=== PATIENT | male | born 1950 | race Caucasian/White ===

== ENCOUNTER 2017-10-29 15:50 | Emergency (ER) | payer OTHER ==
[2017-10-29 16:10] VITALS: RESP 16; TEMP 97.9; O2SAT 95
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
[2017-10-29 18:39] VITALS: BP 150/87; PULSE 83
== END 2017-10-29 18:31 | disposition home or self-care (01) ==
LOC: CED 15:50
DX: S52.002A Unspecified fracture of upper end of left ulna, initial encounter for closed fracture (principal); Z87.891 Personal history of nicotine dependence; V18.9XXA Unspecified pedal cyclist injured in noncollision transport accident in traffic accident, initial encounter
CPT/HCPCS: 73080; 99283; A4565

== ENCOUNTER 2017-11-06 08:56 | Day surgery (SDC) | payer OTHER ==
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
[2017-11-06] MEDS ORDERED: ceFAZolin 2 GM/SWFI 2 GM/20 ML SYR IVP ONE (09:05)
[2017-11-06] MEDS ORDERED: LR 1,000 ML IV ONE (09:06)
[2017-11-06] MEDS ORDERED: MIDAZOLAM 2 MG/2 ML VIAL IVP ONE (09:15)
--- NOTE | 2017-11-06 09:15 | PDANEPAE ---
ANE History of Present Illness Christ FUNG ANE Past Medical History - Cardiovascular History Hx Hypertension: No Hx Arrhythmias: No Hx Chest Pain: No Hx Coronary Artery / Peripheral Vascular Disease: No Hx CHF / Valvular Disease: No Hx Palpitations: No - Pulmonary History Hx COPD: No Hx Asthma/Reactive Airway Disease: No Hx Recent Upper Respiratory Infection: No Hx Oxygen in Use at Home: No Hx Sleep Apnea: No Sleep Apnea Screening Result - Last Documented: Negative - Neurologic History Hx Cerebrovascular Accident: No Hx Seizures: No Hx Dementia: No - Endocrine History Hx Diabetes: No - Renal History Hx Renal Disorders: Yes Renal History Comment: urgency- seems to be subsiding recently - Liver History Hx Hepatic Disorders: No - Neurological & Psychiatric Hx Hx Neurological and Psychiatric Disorders: No - Cancer History Hx Cancer: No - Congenital Disorder History Hx Congenital Disorders: No - GI History Hx Gastrointestinal Disorders: No - Other Health History Other Health History: wears glasses - Chronic Pain History Chronic Pain: No - Surgical History Prior Surgeries: 40 yrs ago- cystic hygroma removed from under left pectoral muscle. hernia repair. tumor removed from spine 2012 ANE Review of Systems Review of systems is: negative Review of Systems: - Exercise capacity METS (RN): 5 METS ANE Patient History - Allergies Allergies/Adverse Reactions: No Known Allergies Allergy (Verified 11/03/17 12:36) - Home Medications Home medications: home medication list seen and reviewed Home Medications: Herbals/Supplements -Info Only 11/03/17 [Last Taken 11/03/17] - NPO status NPO Since - Liquids (Date): 11/06/17 NPO Since - Liquids (Time): 07:00 - Anes Hx Anes Hx: no prior problems - Smoking Hx Smoking Status: Former smoker - Family Anes Hx Family Anes Hx: none Family Hx Anesthesia Complications: none ANE Labs/Vital Signs - Vital Signs Height: 187.96 cm Weight: 81.647 kg ANE Physical Exam - Airway Neck exam: FROM Mallampati Score: Class 1 Mouth exam: normal dental/mouth exam - Pulmonary Pulmonary: no respiratory distress - Cardiovascular Cardiovascular: regular rate and rhythym - ASA Status ASA Status: I ANE Anesthesia Plan Anesthesia Plan: GA w LMA
[2017-11-06] MEDS ORDERED: BACITRACIN 50,000 UNITS/10 ML SYR IRR ONE (09:18)
[2017-11-06] MEDS ORDERED: POLYMYXIN B SULFATE 500,000 UNIT/10 ML SYR IRR ONE (09:18)
[2017-11-06] MEDS ORDERED: BUPIVACAINE 0.5% 10 ML SDV ONE (09:19)
--- NOTE | 2017-11-06 09:29 | PDHPUP ---
History & Physical Update H&P update statement: This history and physical update is based on an assessment of the patient which was completed after admission or registration (within 24 hours), but prior to the surgery/procedure. H&P update: H&P reviewed & patient examined, no change in patient's condition since H&P completed
[2017-11-06] MEDS ORDERED: ROCURONIUM 50 MG/5 ML VIAL ONE (09:55)
[2017-11-06] MEDS ORDERED: PROPOFOL 200 MG/20 ML VIAL ONE (09:55)
[2017-11-06] MEDS ORDERED: LIDOCAINE 2% 100 MG/5 ML SYR ONE (09:55)
[2017-11-06] MEDS ORDERED: fentaNYL 250 MCG/5 ML INJ ONE (09:55)
[2017-11-06] MEDS ORDERED: DEXAMETHASONE 4 MG/ML VIAL ONE (09:55)
[2017-11-06] MEDS ORDERED: ONDANSETRON 4 MG/2 ML VIAL ONE (09:55)
[2017-11-06] MEDS ORDERED: DEXAMETHASONE 4 MG/ML VIAL IVP PRN (10:42)
[2017-11-06] MEDS ORDERED: ONDANSETRON 4 MG/2 ML VIAL IVP PRN (10:42)
[2017-11-06] MEDS ORDERED: NALOXONE HCL 0.4 MG/ML INJ IVP PRN (10:42)
[2017-11-06] MEDS ORDERED: PROMETHAZINE HCL 25 MG/ML INJ IVP PRN (10:42)
[2017-11-06] MEDS ORDERED: HYDROmorphONE/DILAUDID 1 MG/ML INJ IVP PRN (10:42)
[2017-11-06] MEDS ORDERED: MEPERIDINE 25 MG/ML SYR IVP PRN (10:42)
[2017-11-06] MEDS ORDERED: OXYCODONE/APAP 5/325 TAB PO PRN (10:42)
[2017-11-06] MEDS ORDERED: ACETAMINOPHEN 500 MG TAB PO PRN (10:42)
--- NOTE | 2017-11-06 10:44 | POSTANESTH ---
Post Anesthetic Evaluation Cardiovascular Status: Normal, Stable, Similar to Pre-Op Cond Respiratory Status: Normal, Stable, Similar to Pre-op Cond. Level of Consciousness/Mental Status: Can Participate in Eval, Moderately Sleepy Pain Control: Adequate, Prn Tx Ordered Nausea/Vomiting Control: Adequate, Prn Tx Ordered Complications Possibly Related to Anesthesia: None Noted
--- NOTE | 2017-11-06 11:19 | POSTOPPROG ---
Post Op Note Date of Operation: 11/06/17 Surgeon: Fei Gross Chemistry Professor: Bandar Chau Anesthesiologist: Prema Anesthesia: GET(General Endotracheal) Pre-op Diagnosis: Lt olecranon fx Post-op Diagnosis: same Procedure: ORIF lt olecranon Inf/Abcess present in the surg proc area at time of surgery?: No EBL: Minimal Complications: none
[2017-11-06] MEDS ORDERED: fentaNYL 100 MCG/2 ML INJ ONE (11:27)
[2017-11-06] MEDS ORDERED: MEPERIDINE 25 MG/ML SYR ONE (11:27)
[2017-11-06] MEDS: fentaNYL 100 MCG/2 ML INJ IVP PRN ×2 (11:29→11:41)
[2017-11-06] MEDS ORDERED: ACETAMINOPHEN 500 MG TAB ONE (11:58)
[2017-11-06 12:29] VITALS: PULSE 69; RESP 18; TEMP 98.1
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
[2017-11-06 14:29] VITALS: BP 104/71; O2SAT 94
== END 2017-11-06 13:45 | disposition home or self-care (01) ==
LOC: FSGY 08:56
PROVIDERS: ATTEND Orthopaedic Surgery
PROC: 0PSL04Z Reposition Left Ulna with Internal Fixation Device, Open Approach (ICD-10-PCS; principal; 2017-11-06 10:15)
DX: S52.022A Displaced fracture of olecranon process without intraarticular extension of left ulna, initial encounter for closed fracture (principal); Z87.891 Personal history of nicotine dependence; X50.9XXA Other and unspecified overexertion or strenuous movements or postures, initial encounter
CPT/HCPCS: C1713; J0690; J1100; J2001; J2175; J2250; J2405; J2704; J3010

== ENCOUNTER 2018-06-26 09:09 | Day surgery (SDC) | payer OTHER ==
[2018-06-26] MEDS ORDERED: ceFAZolin 2 GM/DEXTROSE 100 ML IV ONE (09:16)
[2018-06-26] MEDS ORDERED: LR 1,000 ML IV ONE (09:17)
[2018-06-26] MEDS ORDERED: BUPIVACAINE/EPI 0.5% 30 ML SDV ONE (09:56)
[2018-06-26] MEDS ORDERED: MIDAZOLAM 2 MG/2 ML VIAL ONE (10:29)
[2018-06-26] MEDS ORDERED: PROPOFOL/EMULSION 500 MG/50 ML BOTTLE IV ONE (10:29)
[2018-06-26] MEDS ORDERED: fentaNYL 100 MCG/2 ML INJ ONE (10:29)
--- NOTE | 2018-06-26 10:38 | PDANEPAE ---
ANE Past Medical History - Cardiovascular History Hx Hypertension: No Hx Arrhythmias: No Hx Chest Pain: No Hx Coronary Artery / Peripheral Vascular Disease: No Hx CHF / Valvular Disease: No Hx Palpitations: No - Pulmonary History Hx COPD: No Hx Asthma/Reactive Airway Disease: No Hx Recent Upper Respiratory Infection: No Hx Oxygen in Use at Home: No Hx Sleep Apnea: No Sleep Apnea Screening Result - Last Documented: Negative - Neurologic History Hx Cerebrovascular Accident: No Hx Seizures: No Hx Dementia: No - Endocrine History Hx Diabetes: No - Renal History Hx Renal Disorders: Yes Renal History Comment: urgency, frequency - Liver History Hx Hepatic Disorders: No - Neurological & Psychiatric Hx Hx Neurological and Psychiatric Disorders: No - Cancer History Hx Cancer: No - Congenital Disorder History Hx Congenital Disorders: No - GI History Hx Gastrointestinal Disorders: No - Other Health History Other Health History: wears glasses. tinnitus, left ear. inguinal hernia. lichen planus, left toes - Chronic Pain History Chronic Pain: No - Surgical History Prior Surgeries: Hardware removal in office 05/2018. Left elbow ORIF, 10/2017. 40 yrs ago- cystic hygroma removed from under left pectoral muscle. hernia repair. tumor removed from spine 2011 ANE Review of Systems Review of Systems: - Exercise capacity METS (RN): 5 METS ANE Patient History - Allergies Allergies/Adverse Reactions: No Known Allergies Allergy (Verified 06/20/18 15:40) - Home Medications Home Medications: NK [No Known Home Meds] 06/20/18 [Last Taken Unknown] - NPO status NPO Since - Liquids (Date): 06/26/18 NPO Since - Liquids (Time): 07:30 NPO Since - Solids (Date): 06/25/18 NPO Since - Solids (Time): 21:00 - Smoking Hx Smoking Status: Former smoker - Family Anes Hx Family Hx Anesthesia Complications: none ANE Labs/Vital Signs - Vital Signs Blood Pressure: 163/95 Heart Rate: 71 Respiratory Rate: 16 O2 Sat (%): 97 Height: 187.96 cm Weight: 81.647 kg ANE Physical Exam - Airway Neck exam: FROM Mallampati Score: Class 1 Mouth exam: normal dental/mouth exam - Pulmonary Pulmonary: no respiratory distress, no rales or rhonchi, clear to auscultation - Cardiovascular Cardiovascular: regular rate and rhythym, no murmur, rub, or gallop - ASA Status ASA Status: II ANE Anesthesia Plan Anesthesia Plan: general endotracheal anesthesia
[2018-06-26] MEDS ORDERED: ALBUTEROL 3 ML DEYVIAL IH PRN (11:07)
[2018-06-26] MEDS ORDERED: METOCLOPRAMIDE 10 MG/2 ML VIAL IVP PRN (11:07)
[2018-06-26] MEDS ORDERED: LR 500 ML IV PRN (11:07)
[2018-06-26] MEDS ORDERED: DEXAMETHASONE 4 MG/ML VIAL IVP PRN (11:07)
[2018-06-26] MEDS ORDERED: ACETAMINOPHEN 500 MG TAB PO PRN (11:07)
[2018-06-26] MEDS ORDERED: oxyCODONE IR 5 MG TAB PO PRN (11:07)
[2018-06-26] MEDS ORDERED: NALOXONE HCL 0.4 MG/ML INJ IVP PRN (11:07)
[2018-06-26] MEDS ORDERED: fentaNYL 100 MCG/2 ML INJ IVP PRN (11:07)
[2018-06-26] MEDS ORDERED: HYDROCODONE/APAP 5/325 TAB PO PRN (11:07)
[2018-06-26] MEDS ORDERED: ONDANSETRON 4 MG/2 ML VIAL IVP PRN (11:07)
[2018-06-26] MEDS ORDERED: MEPERIDINE 25 MG/0.5 ML AMP IVP PRN (11:07)
[2018-06-26] MEDS ORDERED: SUGAMMADEX SODIUM 200 MG/2 ML VIAL IVP ONE (11:15)
[2018-06-26] MEDS ORDERED: ROCURONIUM 50 MG/5 ML VIAL ONE ×2 (11:15→11:50)
[2018-06-26] MEDS ORDERED: METOCLOPRAMIDE 10 MG/2 ML VIAL ONE (11:15)
[2018-06-26] MEDS ORDERED: ONDANSETRON 4 MG/2 ML VIAL ONE (11:15)
[2018-06-26] MEDS ORDERED: ESMOLOL HCL 100 MG/10 ML VIAL IV ONE (11:15)
[2018-06-26] MEDS ORDERED: KETOROLAC 30 MG/1 ML SDV ONE (11:15)
[2018-06-26] MEDS ORDERED: DEXAMETHASONE 4 MG/ML VIAL ONE (11:15)
--- NOTE | 2018-06-26 12:00 | POSTOPPROG ---
Post Op Note Date of Operation: 06/26/18 Surgeon: Luis E Ward [employer] Specialist: PAMELA Felder Anesthesiologist: Alexx Anesthesia: GET(General Endotracheal) Pre-op Diagnosis: LIH Post-op Diagnosis: same Procedure: Robotic assisted LIH c mesh Findings: moderate sized indirect defect Inf/Abcess present in the surg proc area at time of surgery?: No EBL: Minimal
--- NOTE | 2018-06-26 12:24 | POSTANESTH ---
Post Anesthetic Evaluation Cardiovascular Status: Normal, Stable, Similar to Pre-Op Cond Respiratory Status: Normal, Stable, Similar to Pre-op Cond. Level of Consciousness/Mental Status: Moderately Sleepy Pain Control: Adequate, Prn Tx Ordered Nausea/Vomiting Control: Adequate, Prn Tx Ordered Complications Possibly Related to Anesthesia: None Noted
--- NOTE | 2018-06-26 13:11 | GOP ---
DATE OF OPERATION: 06/26/2018 SURGEON: Luis E Ward MD WATER AND GAS HELPER: Mihaela Lynne CFA. ANESTHESIA: General endotracheal. ANESTHESIOLOGIST: Sofia Coffey MD. PREOPERATIVE DIAGNOSIS: Left inguinal hernia. POSTOPERATIVE DIAGNOSIS: Left inguinal hernia. PROCEDURE PERFORMED: Robotic-assisted laparoscopic left inguinal hernia repair with mesh. FINDINGS: Moderate-sized indirect defect successfully reduced and repaired with Bard 3D Light large- size mesh. SPECIMENS: None. ESTIMATED BLOOD LOSS: 5 cc. DESCRIPTION OF PROCEDURE: The patient was greeted in the preoperative suite. Once again, risks, cedric efits and alternatives were discussed. Consent was signed. He was then brought back to the operativ e suite, placed on the OR table in supine position. After all anesthesia machines including SCDs wer e on and functioning, [employer] time-out was performed. After successful induction o f general anesthesia, the patient's abdomen was prepped and draped in typical sterile fashion. I com menced the procedure by making a left upper quadrant incision through which the Veress needle was pas sed. I achieved pneumoperitoneum to 15 mmHg, which was well tolerated by the patient. Through this I inserted an 8 mm trocar. I then inserted 2 additional 8 mm trocars, 1 just above the umbilicus, 1 in the right upper quadrant, both under direct visualization. Once successfully in the abdomen, the patient was placed in gentle Trendelenburg position, and the robot was docked. Using the robot I suc cessfully identified a left inguinal defect. I scored the peritoneum just above the anterior superio r iliac spine and carried this medially to the pubic tubercle. I then opened the preperitoneal flap, carried it down, identified the hernia sac and successfully skeletonized it off the cord structures. Once successfully skeletonized, I interrogated both the direct and femoral spaces and found no othe r significant findings. There was a small cord lipoma, which was removed as well. The mesh was then brought in to the operative field. It was attached to Geronimo's ligament with interrupted 2-0 Vicryl stitch as well as on either side of the inferior epigastric vessels. The peritoneal defect was then closed with a running V-Loc suture. I evacuated my pneumoperitoneum. I had no other significant fi ndings. The skin was closed with Monocryl over which Dermabond was placed. The patient was then ext ubated in the operative suite and taken to the PACU in satisfactory condition. DRAINS: None. COUNTS: All counts were reported as correct x2. /[id number]/MODL
[2018-06-26 13:43] VITALS: BP 103/68
== END 2018-06-26 13:42 | disposition home or self-care (01) ==
LOC: FSGY 09:09
PROVIDERS: ATTEND Surgery
DX: K40.90 Unilateral inguinal hernia, without obstruction or gangrene, not specified as recurrent (principal)
CPT/HCPCS: C1781; J0690; J1100; J1885; J2250; J2405; J2704; J2765; J3010

== ENCOUNTER 2019-02-19 11:15 | Emergency (ER) | payer OTHER | END 2019-02-19 13:14 | disposition home or self-care (01) ==

== ENCOUNTER 2019-03-03 16:03 | Emergency (ER) | payer OTHER | END 2019-03-03 17:47 | disposition home or self-care (01) ==